=== PATIENT | female | born 1955 | race Caucasian/White ===

== ENCOUNTER 2017-06-11 19:13 | Inpatient (IN) | payer BC ==
[~2017-06-11] VITALS: Ht 162.6 cm; Wt 52.4 kg
[2017-06-11 20:11] LABS: BASO # 0.1 (0.0-0.2); BASO % 1.1 % (0.0-2.0); EOS # 0.2 (0.0-0.7); EOS % 2.2 % (0-4.0); GRAN # 6.1 (1.4-6.5); GRAN % 69.9 % (42.2-75.2); HEMATOCRIT 39.3 % (37.0-47.0); HEMOGLOBIN 13.2 g/dl (12.5-16.0); LYMPH # 1.7 (1.2-3.4); LYMPH % 19.9 % (20.0-51.0); MEAN CELL VOLUME 91 fl (80.0-100.0); MEAN CORPUSCULAR HEMOGLOBIN 31 pg (27.0-31.0); MEAN CORPUSCULAR HGB CONC 34 g/dl (33.0-37.0); MEAN PLATELET VOLUME 9.1 fl (7.4-10.4); MONO # 0.6 (0.1-0.6); MONO % 6.3 % (1.7-9.3); PLATELET COUNT 258 K/mm3 (130-400); RED BLOOD COUNT 4.32 M/mm3 (4.10-5.30); WHITE BLOOD COUNT 8.7 K/mm3 (4.8-10.8)
[2017-06-11 20:19] LABS: INR 0.9 (0.8-3.0); PROTHROMBIN TIME 10.4 SECONDS (9.7-12.8)
[2017-06-11 20:20] LABS: ADJUSTED CALCIUM 8.8 mg/dL (8.4-10.2); ALBUMIN 4.3 gm/dL (3.5-5.0); BILIRUBIN,TOTAL 0.4 mg/dL (0.0-1.0); CREATININE, serum 0.63 mg/dL (0.52-1.25); POTASSIUM 3.2 mmol/L (3.4-5.0); TOTAL PROTEIN 6.4 gm/dL (6.4-8.2)
[2017-06-11 20:27] LABS: PRE ALBUMIN 21.3 mg/dL (17.6-36.0)
[2017-06-11] MEDS ORDERED: PRILOSEC10 MG PO (21:33)
[2017-06-11] MEDS ORDERED: VALTREX 50500 MG/TAB PO (21:35)
[2017-06-11] MEDS ORDERED: SUDAFED30 MG PO (21:36)
[2017-06-11] MEDS ORDERED: REQUIP0.25 MG PO (21:54)
[2017-06-11] MEDS ORDERED: REQUIP 0.5MG0.5 MG PO (21:55)
[2017-06-11] MEDS ORDERED: VALTREX1 GM PO (22:01)
[2017-06-11] MEDS ORDERED: PRILOSEC 20MG20 MG PO (22:02)
[2017-06-11] MEDS ORDERED: AMBIEN 10MG10 MG PO (22:02)
[2017-06-11] MEDS ORDERED: FLEXERIL5 MG PO (22:03)
[2017-06-11 22:44] VITALS: BP 134/70; PULSE 102; TEMP 98.3
[2017-06-11 22:45] VITALS: BP 134/70; PULSE 106; TEMP 98.6
[2017-06-12] VITALS (12 sets, daily range): BP systolic 113–159; BP diastolic 52–96; PULSE 84–103; TEMP 97.6–98.3
[2017-06-12 05:35] LABS: BASO # 0.1 (0.0-0.2); EOS # 0.1 (0.0-0.7); EOS % 0.8 % (0-4.0); GRAN % 66.6 % (42.2-75.2); LYMPH # 2.2 (1.2-3.4); LYMPH % 23.8 % (20.0-51.0); MEAN CELL VOLUME 91 fl (80.0-100.0); MEAN CORPUSCULAR HGB CONC 33 g/dl (33.0-37.0); MEAN PLATELET VOLUME 9.3 fl (7.4-10.4); MONO # 0.7 (0.1-0.6); MONO % 7.5 % (1.7-9.3); PLATELET COUNT 203 K/mm3 (130-400); RED BLOOD COUNT 3.57 M/mm3 (4.10-5.30)
[2017-06-12 05:37] LABS: HEMATOCRIT 32.3 % (37.0-47.0); HEMOGLOBIN 10.8 g/dl (12.5-16.0); MEAN CORPUSCULAR HEMOGLOBIN 30 pg (27.0-31.0)
[2017-06-12 05:47] LABS: ALBUMIN 3.7 gm/dL (3.5-5.0); BILIRUBIN,TOTAL 0.5 mg/dL (0.0-1.0); CALCIUM 8.8 mg/dL (8.4-10.2); CREATININE, serum 0.75 mg/dL (0.52-1.25); POTASSIUM 3.7 mmol/L (3.4-5.0); TOTAL PROTEIN 5.8 gm/dL (6.4-8.2)
[2017-06-12 06:51] LABS: MUCOUS Present /lpf; PH 5 (5-8); SQUAMOUS EPITHELIAL 0-2 /hpf; URINE APPEARANCE Clear; URINE BACTERIA None Seen /hpf; URINE BILIRUBIN Negative (NEGATIVE); URINE BLOOD 1+ (NEGATIVE); URINE COLOR Yellow; URINE GLUCOSE Negative (NEGATIVE); URINE KETONE Negative (NEGATIVE); URINE LEUKOCYTE ESTERASE Negative (NEGATIVE); URINE PROTEIN(semi-quant) Negative (NEGATIVE); URINE RBC 0-2 /hpf; URINE UROBILINOGEN Negative (NEGATIVE)
[2017-06-12 07:55] LABS: COLLECTION METHOD CLEAN CATCH
[2017-06-13 05:57] LABS: HEMATOCRIT 21.2 % (37.0-47.0); HEMOGLOBIN 7.1 g/dl (12.5-16.0)
[2017-06-13 06:10] LABS: CALCIUM 8.2 mg/dL (8.4-10.2); CREATININE, serum 0.61 mg/dL (0.52-1.25); POTASSIUM 3.9 mmol/L (3.4-5.0)
[2017-06-13 06:17] VITALS: BP 83/43; PULSE 80; TEMP 98.7
[2017-06-13 09:04] VITALS: BP 97/49; PULSE 99; TEMP 97.3
[2017-06-13 14:10] VITALS: BP 97/48; PULSE 103; TEMP 98.4
[2017-06-13 17:25] VITALS: BP 110/50; PULSE 98; TEMP 98.2
[2017-06-13 21:50] VITALS: BP 111/47; PULSE 91; TEMP 98.1
[2017-06-14 06:26] VITALS: BP 108/52; PULSE 92; TEMP 98.5
[2017-06-14 07:28] LABS: HEMATOCRIT 21.3 % (37.0-47.0); HEMOGLOBIN 7.1 g/dl (12.5-16.0)
[2017-06-14 10:48] VITALS: BP 109/67; PULSE 72; TEMP 98.2
[2017-06-14] MEDS ORDERED: FERROUS SU325 MG/TAB PO (11:13)
[2017-06-14] MEDS ORDERED: ASPI325T6 PO (11:13)
[2017-06-14] MEDS ORDERED: TYLENOL 325MG325 MG PO (11:14)
[2017-06-14] MEDS ORDERED: NORCO 325 MG-51 TAB PO (11:14)
[2017-06-14] MEDS ORDERED: CELEBREX 200MG200 MG PO (11:14)
[2017-06-14] MEDS ORDERED: OYSCO 500500 M1 PO (11:14)
[2017-06-14] MEDS ORDERED: VITAMINC500CH PO (11:15)
[2017-06-14] MEDS ORDERED: SENOKOT S 50 MG1 TAB PO (11:15)
[2017-06-14] MEDS ORDERED: DULCOLAX S10 MG/SUPP RC (11:15)
[2017-06-14] MEDS ORDERED: DUO-KAPS1 CAP PO (11:16)
== END 2017-06-14 12:45 | DRG 481 ==
LOC: COL.ER 19:13 → JCC 19:57
PROVIDERS: Emergency Medicine; Internal Medicine; Nurse Practitioner; Orthopaedic Surgery
PROC: 0QS706Z Reposition Left Upper Femur with Intramedullary Internal Fixation Device, Open Approach (ICD-10-PCS; principal; 2017-06-12 08:00)
DX: S72.142A Displaced intertrochanteric fracture of left femur, initial encounter for closed fracture (principal); D62 Acute posthemorrhagic anemia; E44.0 Moderate protein-calorie malnutrition; Z68.1 Body mass index [BMI] 19.9 or less, adult; E87.6 Hypokalemia; B02.9 Zoster without complications; I10 Essential (primary) hypertension; K21.9 Gastro-esophageal reflux disease without esophagitis; W01.0XXA Fall on same level from slipping, tripping and stumbling without subsequent striking against object, initial encounter; Y92.096 Garden or yard of other non-institutional residence as the place of occurrence of the external cause
CPT/HCPCS: 99222-AI; 99232-AI; 99239; A9284; C1713; J0690; J1100; J2250; J2270; J2405; J2704; J2710; J2795; J3010; J7030; J7120

== ENCOUNTER 2017-06-14 12:30 | Inpatient (IN) | payer BC ==
[~2017-06-14] VITALS: Ht 162.6 cm; Wt 50.7 kg
[~2017-06-14 12:30] MED LIST: AMBIEN 10MG10 MG PO; ASPI325T6 PO; CELEBREX 200MG200 MG PO; DULCOLAX S10 MG/SUPP RC; DUO-KAPS1 CAP PO; FERROUS SU325 MG/TAB PO; FLEXERIL5 MG PO; NORCO 325 MG-51 TAB PO; OYSCO 500500 M1 PO; PRILOSEC 20MG20 MG PO; PRILOSEC10 MG PO; REQUIP 0.5MG0.5 MG PO; REQUIP0.25 MG PO; SENOKOT S 50 MG1 TAB PO; SUDAFED30 MG PO; TYLENOL 325MG325 MG PO; VALTREX 50500 MG/TAB PO; VALTREX1 GM PO; VITAMINC500CH PO
[2017-06-14 18:53] VITALS: BP 95/54; PULSE 94; TEMP 97.4
[2017-06-15 05:26] VITALS: BP 110/61; PULSE 82; TEMP 98.5
[2017-06-15 15:36] VITALS: BP 119/60; PULSE 95; TEMP 97.8
[2017-06-16 06:18] VITALS: BP 122/75; PULSE 73; TEMP 97.5
[2017-06-16 07:07] LABS: BASO # 0.1 (0.0-0.2); BASO % 0.8 % (0.0-2.0); EOS # 0.3 (0.0-0.7); EOS % 5.1 % (0-4.0); GRAN # 3.9 (1.4-6.5); GRAN % 58.5 % (42.2-75.2); LYMPH # 1.8 (1.2-3.4); LYMPH % 27.1 % (20.0-51.0); MEAN CELL VOLUME 94 fl (80.0-100.0); MEAN CORPUSCULAR HGB CONC 33 g/dl (33.0-37.0); MEAN PLATELET VOLUME 9.6 fl (7.4-10.4); MONO # 0.5 (0.1-0.6); MONO % 8.2 % (1.7-9.3); PLATELET COUNT 255 K/mm3 (130-400); RED BLOOD COUNT 2.51 M/mm3 (4.10-5.30); WHITE BLOOD COUNT 6.6 K/mm3 (4.8-10.8)
[2017-06-16 07:09] LABS: HEMATOCRIT 23.6 % (37.0-47.0); HEMOGLOBIN 7.8 g/dl (12.5-16.0); MEAN CORPUSCULAR HEMOGLOBIN 31 pg (27.0-31.0)
[2017-06-16 15:55] VITALS: BP 124/74; PULSE 97; TEMP 98
[2017-06-17 06:54] VITALS: BP 110/66; PULSE 93; TEMP 98.2
[2017-06-17 18:09] VITALS: BP 139/68; PULSE 94; TEMP 98.1
[2017-06-18 04:27] VITALS: BP 103/60; PULSE 56; TEMP 98
[2017-06-18 16:27] VITALS: BP 97/43; PULSE 94; TEMP 97.9
[2017-06-18 22:10] VITALS: BP 112/64; PULSE 97; TEMP 98.1
[2017-06-19 06:31] VITALS: BP 109/51; PULSE 70; TEMP 97.9
== END 2017-06-19 10:00 | disposition home or self-care (01) | DRG 560 ==
PROVIDERS: Family Medicine
DX: S72.142D Displaced intertrochanteric fracture of left femur, subsequent encounter for closed fracture with routine healing (principal); E44.0 Moderate protein-calorie malnutrition; Z68.1 Body mass index [BMI] 19.9 or less, adult; D50.0 Iron deficiency anemia secondary to blood loss (chronic); E87.6 Hypokalemia; G25.81 Restless legs syndrome; B02.9 Zoster without complications
CPT/HCPCS: 99222-AI; 99232-AI; 99239

== ENCOUNTER → 2017-07-28 | Outpatient (CLI) | payer BC | LOC: MC.RAD 11:00 | DX: Z12.31 Encounter for screening mammogram for malignant neoplasm of breast (principal); Z98.82 Breast implant status ==

== ENCOUNTER → 2017-11-11 | Outpatient (CLI) | payer BC ==
[~2017-11-11] MED LIST changes: +ASPIRIN E.C. 8181 MG PO; +IBU400 MG PO; +LIPITOR20 MG PO; +PLAVIX 75MG TAB75 MG PO
== END ==
LOC: COL.VAS 08:24
DX: G45.9 Transient cerebral ischemic attack, unspecified (principal)

== ENCOUNTER → 2018-01-18 | Outpatient (CLI) | payer BC | LOC: COL.CARD 09:29 | DX: R41.89 Other symptoms and signs involving cognitive functions and awareness (principal) ==

== ENCOUNTER 2018-01-25 08:20 | Emergency (ER) | payer BC ==
[~2018-01-25] VITALS: Ht 160 cm; Wt 49.5 kg
[2018-01-25 08:24] VITALS: TEMP 98.2
[2018-01-25 08:49] LABS: COLLECTION METHOD CLEAN CATCH
[2018-01-25 09:00] LABS: MUCOUS Present /lpf; PH 5 (5-8); SQUAMOUS EPITHELIAL None Seen /hpf; URINE APPEARANCE Clear; URINE BACTERIA None Seen /hpf; URINE BILIRUBIN Negative (NEGATIVE); URINE BLOOD Negative (NEGATIVE); URINE COLOR Straw; URINE GLUCOSE Negative (NEGATIVE); URINE KETONE Negative (NEGATIVE); URINE LEUKOCYTE ESTERASE Negative (NEGATIVE); URINE NITRATE Negative (NEGATIVE); URINE PROTEIN(semi-quant) Negative (NEGATIVE); URINE RBC 0-2 /hpf; URINE UROBILINOGEN Negative (NEGATIVE)
[2018-01-25 09:06] LABS: BASO # 0.1 (0.0-0.2); BASO % 1.3 % (0.0-2.0); EOS # 0.2 (0.0-0.7); EOS % 2.3 % (0-4.0); GRAN # 4.8 (1.4-6.5); GRAN % 63.9 % (42.2-75.2); HEMATOCRIT 40.8 % (37.0-47.0); HEMOGLOBIN 13.7 g/dl (12.5-16.0); LYMPH # 1.7 (1.2-3.4); LYMPH % 23.1 % (20.0-51.0); MEAN CELL VOLUME 92 fl (80.0-100.0); MEAN CORPUSCULAR HEMOGLOBIN 31 pg (27.0-31.0); MEAN CORPUSCULAR HGB CONC 34 g/dl (33.0-37.0); MEAN PLATELET VOLUME 9.3 fl (7.4-10.4); MONO # 0.7 (0.1-0.6); MONO % 9.1 % (1.7-9.3); PLATELET COUNT 269 K/mm3 (130-400); RED BLOOD COUNT 4.42 M/mm3 (4.10-5.30); REDCELL DISTRIBUTION WIDTH-CV 11.8 % (11.5-14.5)
[2018-01-25] MEDS ORDERED: NEXIUM 20MG20 MG PO (09:18)
[2018-01-25 09:20] LABS: ALBUMIN 3.9 gm/dL (3.5-5.0); BILIRUBIN,TOTAL 0.3 mg/dL (0.0-1.0); CALCIUM 9.3 mg/dL (8.4-10.2); CREATININE, serum 0.69 mg/dL (0.52-1.25); TOTAL PROTEIN 6.9 gm/dL (6.4-8.2)
[2018-01-25 15:25] VITALS: BP 103/53; PULSE 77
== END 2018-01-25 15:27 | disposition home or self-care (01) ==
LOC: COL.ER 08:20
PROVIDERS: Emergency Medicine
DX: H53.2 Diplopia (principal); R51 Headache; Z79.02 Long term (current) use of antithrombotics/antiplatelets; Z79.82 Long term (current) use of aspirin
CPT/HCPCS: A9585; J0780; J1885; J2060; J7040

== ENCOUNTER → 2018-07-22 | Outpatient (CLI) | payer BC ==
[~2018-07-22] MED LIST changes: +NEXIUM 20MG20 MG PO
[2018-07-22 12:16] LABS: COLLECTION METHOD CLEAN CATCH
[2018-07-22 12:22] LABS: BASO # 0.1 (0.0-0.2); BASO % 1.3 % (0.0-2.0); EOS # 0.1 (0.0-0.7); EOS % 1.2 % (0-4.0); GRAN # 4.6 (1.4-6.5); GRAN % 66.9 % (42.2-75.2); HEMATOCRIT 42.5 % (37.0-47.0); LYMPH # 1.6 (1.2-3.4); LYMPH % 22.3 % (20.0-51.0); MEAN CELL VOLUME 93 fl (80.0-100.0); MEAN CORPUSCULAR HEMOGLOBIN 31 pg (27.0-31.0); MEAN CORPUSCULAR HGB CONC 33 g/dl (33.0-37.0); MEAN PLATELET VOLUME 9.2 fl (7.4-10.4); MONO # 0.6 (0.1-0.6); MONO % 8.2 % (1.7-9.3); PLATELET COUNT 307 K/mm3 (130-400); RED BLOOD COUNT 4.57 M/mm3 (4.10-5.30); REDCELL DISTRIBUTION WIDTH-CV 12.3 % (11.5-14.5)
[2018-07-22 12:24] LABS: MUCOUS Present /lpf; PH 7 (5-8); SQUAMOUS EPITHELIAL 0-2 /hpf; URINE APPEARANCE Hazy; URINE BACTERIA None Seen /hpf; URINE BILIRUBIN Negative (NEGATIVE); URINE BLOOD Negative (NEGATIVE); URINE COLOR Yellow; URINE GLUCOSE Negative (NEGATIVE); URINE KETONE Negative (NEGATIVE); URINE LEUKOCYTE ESTERASE Negative (NEGATIVE); URINE NITRATE Negative (NEGATIVE); URINE PROTEIN(semi-quant) 1+ (NEGATIVE); URINE UROBILINOGEN Negative (NEGATIVE); URINE WBC 0-2 /hpf
[2018-07-22 12:45] LABS: ALBUMIN 4.4 gm/dL (3.5-5.0); CALCIUM 9.4 mg/dL (8.4-10.2); CREATININE, serum 0.64 mg/dL (0.52-1.25); TOTAL PROTEIN 7.3 gm/dL (6.4-8.2)
[2018-07-22 12:59] LABS: CHOLESTEROL RISK RATIO 1.8
[2018-07-22 13:13] LABS: THYROID STIMULATING HORMONE 1.21 uIU/mL (0.465-4.680)
== END ==
LOC: COL.LAB 11:25
PROVIDERS: Internal Medicine
DX: Z00.00 Encounter for general adult medical examination without abnormal findings (principal)

== ENCOUNTER → 2018-12-28 | Outpatient (CLI) | payer BC ==
[2018-12-28 12:53] LABS: BASO # 0.1 (0.0-0.2); BASO % 0.9 % (0.0-2.0); EOS # 0.1 (0.0-0.7); EOS % 1.5 % (0-4.0); GRAN # 6.3 (1.4-6.5); GRAN % 66.4 % (42.2-75.2); HEMATOCRIT 44.5 % (37.0-47.0); HEMOGLOBIN 14.8 g/dl (12.5-16.0); LYMPH # 2.2 (1.2-3.4); LYMPH % 23.2 % (20.0-51.0); MEAN CELL VOLUME 93 fl (80.0-100.0); MEAN CORPUSCULAR HEMOGLOBIN 31 pg (27.0-31.0); MEAN CORPUSCULAR HGB CONC 33 g/dl (33.0-37.0); MEAN PLATELET VOLUME 8.8 fl (7.4-10.4); MONO # 0.7 (0.1-0.6); MONO % 7.5 % (1.7-9.3); PLATELET COUNT 384 K/mm3 (130-400); RED BLOOD COUNT 4.79 M/mm3 (4.10-5.30); REDCELL DISTRIBUTION WIDTH-CV 12.6 % (11.5-14.5)
[2018-12-28 13:07] LABS: ERYTHROCYTE SEDIMENTATION RATE 1 mm/hr (0-30)
== END ==
LOC: COL.LAB 12:31
PROVIDERS: Family Medicine
DX: G44.001 Cluster headache syndrome, unspecified, intractable (principal)

== ENCOUNTER → 2019-09-26 | Outpatient (CLI) | payer BC ==
[2019-09-26 07:44] LABS: COLLECTION METHOD CLEAN CATCH
[2019-09-26 07:47] LABS: BASO # 0.1 (0.0-0.2); BASO % 1.1 % (0.0-2.0); EOS # 0.2 (0.0-0.7); EOS % 2.8 % (0-4.0); GRAN # 4.1 (1.4-6.5); GRAN % 54.4 % (42.2-75.2); HEMATOCRIT 43.3 % (37.0-47.0); HEMOGLOBIN 14.2 g/dl (12.5-16.0); LYMPH # 2.4 (1.2-3.4); LYMPH % 32.2 % (20.0-51.0); MEAN CELL VOLUME 92 fl (80.0-100.0); MEAN CORPUSCULAR HEMOGLOBIN 30 pg (27.0-31.0); MEAN CORPUSCULAR HGB CONC 33 g/dl (33.0-37.0); MONO # 0.7 (0.1-0.6); MONO % 9.1 % (1.7-9.3); PLATELET COUNT 341 K/mm3 (130-400); RED BLOOD COUNT 4.73 M/mm3 (4.10-5.30); REDCELL DISTRIBUTION WIDTH-CV 12.4 % (11.5-14.5)
[2019-09-26 07:50] LABS: MUCOUS Present /lpf; PH 6 (5-8); SQUAMOUS EPITHELIAL 0-2 /hpf; URINE APPEARANCE Clear; URINE BACTERIA None Seen /hpf; URINE BILIRUBIN Negative (NEGATIVE); URINE BLOOD Negative (NEGATIVE); URINE COLOR Yellow; URINE GLUCOSE Negative (NEGATIVE); URINE KETONE Negative (NEGATIVE); URINE LEUKOCYTE ESTERASE Trace (NEGATIVE); URINE NITRATE Negative (NEGATIVE); URINE PROTEIN(semi-quant) Negative (NEGATIVE); URINE RBC 0-2 /hpf; URINE UROBILINOGEN Negative (NEGATIVE)
[2019-09-26 08:07] LABS: ALBUMIN 4.3 gm/dL (3.5-5.0); BILIRUBIN,TOTAL 0.7 mg/dL (0.0-1.0); CALCIUM 9.3 mg/dL (8.4-10.2); CHOLESTEROL RISK RATIO 3.4; CREATININE, serum 0.63 (0.52-1.25); POTASSIUM 4.1 mmol/L (3.4-5.0); TOTAL PROTEIN 7.1 gm/dL (6.4-8.2)
[2019-09-26 08:37] LABS: THYROID STIMULATING HORMONE 1.69 uIU/mL (0.465-4.680)
== END ==
LOC: COL.LAB 07:19
PROVIDERS: Internal Medicine
DX: Z00.00 Encounter for general adult medical examination without abnormal findings (principal); Z13.220 Encounter for screening for lipoid disorders; Z13.29 Encounter for screening for other suspected endocrine disorder

== ENCOUNTER → 2020-10-02 | Outpatient (CLI) | payer MEDICARE, OTHER ==
[2020-10-02 12:43] LABS: BASO # 0.1 (0.0-0.2); BASO % 1.4 % (0.0-2.0); EOS # 0.2 (0.0-0.7); EOS % 2.1 % (0-4.0); GRAN # 4.2 (1.4-6.5); GRAN % 58.8 % (42.2-75.2); HEMOGLOBIN 13.8 g/dl (12.5-16.0); LYMPH # 2.1 (1.2-3.4); LYMPH % 28.9 % (20.0-51.0); MEAN CELL VOLUME 94 fl (80.0-100.0); MEAN CORPUSCULAR HEMOGLOBIN 31 pg (27.0-31.0); MEAN CORPUSCULAR HGB CONC 33 g/dl (33.0-37.0); MEAN PLATELET VOLUME 9.6 fl (7.4-10.4); MONO # 0.6 (0.1-0.6); MONO % 8.5 % (1.7-9.3); PLATELET COUNT 341 K/mm3 (130-400); RED BLOOD COUNT 4.48 M/mm3 (4.10-5.30); REDCELL DISTRIBUTION WIDTH-CV 12.2 % (11.5-14.5)
[2020-10-02 12:52] LABS: ALBUMIN 4.3 gm/dL (3.5-5.0); BILIRUBIN,TOTAL 0.6 mg/dL (0.0-1.0); CALCIUM 9.4 mg/dL (8.4-10.2); CHOLESTEROL RISK RATIO 2.8; CREATININE, serum 0.68 (0.52-1.25); POTASSIUM 4.2 mmol/L (3.4-5.0); TOTAL PROTEIN 7.1 gm/dL (6.4-8.2)
[2020-10-02 12:57] LABS: COLLECTION METHOD CLEAN CATCH
[2020-10-02 13:11] LABS: MUCOUS Present /lpf; PH 5 (5-8); SQUAMOUS EPITHELIAL 0-2 /hpf; URINE APPEARANCE Hazy; URINE BACTERIA None Seen /hpf; URINE BILIRUBIN Negative (NEGATIVE); URINE BLOOD Negative (NEGATIVE); URINE COLOR Yellow; URINE GLUCOSE Negative (NEGATIVE); URINE KETONE Negative (NEGATIVE); URINE LEUKOCYTE ESTERASE Negative (NEGATIVE); URINE NITRATE Negative (NEGATIVE); URINE PROTEIN(semi-quant) 1+ (NEGATIVE); URINE RBC 0-2 /hpf; URINE UROBILINOGEN Negative (NEGATIVE)
[2020-10-02 13:22] LABS: THYROID STIMULATING HORMONE 0.728 uIU/mL (0.465-4.680)
== END ==
LOC: COL.LAB 11:34
PROVIDERS: Internal Medicine
DX: Z11.59 Encounter for screening for other viral diseases (principal); F41.1 Generalized anxiety disorder; Z79.899 Other long term (current) drug therapy; K27.9 Peptic ulcer, site unspecified, unspecified as acute or chronic, without hemorrhage or perforation; G25.81 Restless legs syndrome; G45.9 Transient cerebral ischemic attack, unspecified; M81.0 Age-related osteoporosis without current pathological fracture; I67.9 Cerebrovascular disease, unspecified

== ENCOUNTER 2021-04-21 13:31 | Outpatient (CLI) | payer MEDICARE, OTHER ==
[~2021-04-21] VITALS: Ht 160 cm; Wt 50.0 kg
[2021-04-21 13:35] VITALS: BP 115/76; PULSE 65; TEMP 98.2
[2021-04-21 13:45] VITALS: BP 113/58; PULSE 61
[2021-04-21 14:00] VITALS: BP 114/55; PULSE 65
[2021-04-21 14:15] VITALS: BP 103/54; PULSE 68
[2021-04-21 14:30] VITALS: BP 110/72; PULSE 67
[2021-04-21 14:45] VITALS: BP 109/71; PULSE 67; TEMP 98.3
== END 2021-04-21 15:18 | disposition home or self-care (01) ==
LOC: EUO 13:31
DX: U07.1 COVID-19 (principal)
CPT/HCPCS: M0243; Q0244

== ENCOUNTER → 2021-07-04 | Outpatient (CLI) | payer MEDICARE, OTHER ==
[2021-07-04 10:25] LABS: COLLECTION METHOD CLEAN CATCH
[2021-07-04 10:27] LABS: BASO # 0.1 K/mm3 (0.0-0.2); BASO % 1.7 % (0.0-2.0); EOS # 0.2 K/mm3 (0.0-0.7); GRAN # 5.1 K/mm3 (1.4-6.5); HEMATOCRIT 43.6 % (37.0-47.0); HEMOGLOBIN 15.1 g/dl (12.5-16.0); LYMPH # 1.6 K/mm3 (1.2-3.4); LYMPH % 20.7 % (20.0-51.0); MEAN CELL VOLUME 88 fl (80.0-100.0); MEAN CORPUSCULAR HEMOGLOBIN 31 pg (27.0-31.0); MEAN CORPUSCULAR HGB CONC 35 g/dl (33.0-37.0); MEAN PLATELET VOLUME 8.8 fl (7.4-10.4); MONO # 0.6 K/mm3 (0.1-0.6); MONO % 8.3 % (1.7-9.3); PLATELET COUNT 339 K/mm3 (130-400); RED BLOOD COUNT 4.95 M/mm3 (4.10-5.30); REDCELL DISTRIBUTION WIDTH-CV 11.8 % (11.5-14.5)
[2021-07-04 10:36] LABS: MUCOUS Present (NOT PRESENT); PH 6 (5-8); URINE APPEARANCE Hazy (CLEAR/HAZY); URINE BACTERIA None Seen (NONE SEEN); URINE BILIRUBIN Negative (NEGATIVE); URINE BLOOD Negative (NEGATIVE); URINE COLOR Yellow (YELLOW); URINE GLUCOSE Negative (NEGATIVE); URINE KETONE Negative (NEGATIVE); URINE LEUKOCYTE ESTERASE 2+ (NEGATIVE); URINE NITRATE Negative (NEGATIVE); URINE PROTEIN(semi-quant) Negative (NEGATIVE); URINE UROBILINOGEN Negative (NEGATIVE)
[2021-07-04 10:37] LABS: PROTHROMBIN TIME 11.6 SECONDS (9.7-12.8)
[2021-07-04 10:42] LABS: ALBUMIN 4.5 gm/dL (3.4-4.8); CALCIUM 10.2 mg/dL (8.4-10.2); CREATININE, serum 0.84 mg/dL (0.57-1.11); POTASSIUM 4.2 mmol/L (3.5-4.5); TOTAL PROTEIN 7.5 gm/dL (6.2-8.1)
== END ==
LOC: COL.LAB 09:33
PROVIDERS: Internal Medicine
DX: Z01.812 Encounter for preprocedural laboratory examination (principal); M79.605 Pain in left leg